=== PATIENT | male | born 1990 | race African-American/Black ===

== ENCOUNTER 2019-09-14 22:55 | Emergency (ER) | payer BC, OTHER ==
[~2019-09-14] VITALS: Ht 170.2 cm; Wt 59.0 kg
--- NOTE | ~2019-09-14 | EMS ---
[place] [address] EMS Patient Care Report Name: DONALD HINDS Room #: PRE M.R.#: [id number] Admission: Attend Phys: Discharge: Date of : [birth year] Report #: [id number] THIS REPORT FOR: //name// Report Transmitted: 09/14/2019 22:13 EMS Care Summary [place], [place]/[facility] Incident [id number] @ 09/14/2019 22:23 Incident [address] [place] [address] Patient DONALD HINDS Male, 29 Years 1990 Patient Address [address] [place] [address] Patient History None Reported, Patient Allergies No known allergies, Patient Medications None Reported, Chief Complaint INTERMITTENT DIZINESS Disposition Transported No Lights/[place] Dispatch Reason Sick Person Transported To [facility] Narrative PT FOUND SITTING ON COUCH. [facility] ALSO RESPONDED BUT STAYED IN [place]. PT STATES HE HAS HAD INTERMITTENT DIZINESS OVER THE LAST SEVERAL DAYS. PT DENIES ANY OTHER COMPLAINTS. PT GIVEN A SURGICAL MASK TO WEAR FOR TRASNPORT. [place] [address] EMS Patient Care Report Name: ODNALD HINDS Room #: PRE ER M.R.#: [id number] Admission: Attend Phys: Discharge: Date of : 88 Report #: [id number] Initial Vitals @22:32P: 76,R: 18,BP: 141/80,Pain: 0/10,GCS: 15,Temp: 98F,Glucose: 119,SpO2: 100,Revised Trauma: 12, Assessments @22:30MENTAL:No Abnormalities,SKIN:No Abnormalities,HEENT:Head/Face: No Abnormalities,Eyes: No Abnormalities,Neck/Airway: No Abnormalities,LUNG SOUNDS:ABDOMEN:PELVIS//GI:EXTREMITIES:PULSE:NEURO:No Abnormalities, Impression Dizziness Procedures @22:30ALS AssessmentResponse: UnchangedSucceeded Timeline 22:21,Call Received 22:21,Dispatch Notified 22:23,Dispatched 22:25,En Route 22:28,On Scene 22:30,At Patient 22:30,ALS Assessment,Response: UnchangedSucceeded, 22:32,BP: 141/80 M,PULSE: 76,RR: 18 R,SPO2: 100 Ox,ETCO2: ,B,PAIN: 0,GCS: 15, 22:42,Depart Scene 22:50,At Destination 23:10,Call Closed Disclaimer v1.1 Copyright 2020 [employer] This EMS Care Summary contains data elements from the applicable legal record (which may be displayed differently). It is designed to provide pertinent information for the following purposes: continuity of care, clinical quality, and state data reporting. The complete legal record is available to ED staff and administrators of the receiving hospital in [employer] Patient Tracker. All data is provided "as is."
[2019-09-14 23:28] LABS: ABSOLUTE NEUTROPHILS 2.7 thou/uL (1.4-8.2); BASOPHILS 0.6 % (0.0-2.0); EOSINOPHILS 3.8 % (0.0-3.0); HEMATOCRIT 37.9 % (42.0-52.0); HEMOGLOBIN 15.6 gm/dL (14.0-18.0); LYMPHOCYTES 44.3 % (24.0-44.0); MCH 28.1 pg (26.0-34.0); MCV 68.5 fL (80.0-100.0); MONOCYTES 8.7 % (1.0-8.0); PLATELET COUNT 205 thou/uL (150-400); POLYS 42.6 % (36.0-66.0); RBC 5.53 mil/uL (4.50-6.00); RDW 14.6 % (10.5-14.5); WBC 6.4 thou/uL (4.0-11.0)
[2019-09-14 23:32] LABS: ANION GAP 6 mmol/L (7-16); BUN 12 mg/dL (7-18); CALCIUM 8.6 mg/dL (8.5-10.1); CHLORIDE 98 mmol/L (98-107); CO2 29 mmol/L (21-32); CREATININE 1.4 mg/dL (0.7-1.3); GLUCOSE 159 mg/dL (74-106); SODIUM 133 mmol/L (136-145)
[2019-09-14 23:40] LABS: TROPONIN-I <0.06 ng/mL (<0.06)
[2019-09-15 01:19] LABS: URINE BILIRUBIN NEGATIVE (Negative); URINE BLOOD NEGATIVE (Negative); URINE CLARITY CLEAR; URINE COLOR YELLOW; URINE GLUCOSE-RANDOM* NEGATIVE (Negative); URINE KETONES NEGATIVE (Negative); URINE LEUKOCYTES-REFLEX NEGATIVE (Negative); URINE NITRITE-REFLEX NEGATIVE (Negative); URINE PROTEIN (DIPSTICK) NEGATIVE (Negative); URINE UROBILINOGEN 0.2 E.U./dl (0.2-1.0)
[2019-09-15] MEDS ORDERED: POTASSIUM20 PO (01:23)
[2019-09-15] MEDS ORDERED: MAGOX 400400 MG PO (01:23)
[2019-09-15 01:36] VITALS: BP 129/77
--- NOTE | 2019-09-15 08:28 | EKG ---
[facility] [place] [address] ELECTROCARDIOGRAM REPORT Name: DONALD HINDS Room #: DEP [facility]#: [id number] Admission: 09/14/19 Attend Phys: Discharge: 09/15/19 Date of : [birth year] Report #: [id number] THIS REPORT FOR: cc: JERROD - Demetria family physician/PCP JERROD - Demetria family physician/PCP Brandyn Villarreal MD [facility] THIS REPORT FOR: //name// [facility] ED Test Date: 2019-09-14 Test Time: 23:28:32 Pat Name: DONALD HINDS Department: Room: Gender: Customer Field Representative: fabricio del angel rn : 1990 Requested By: Roel Real Order Number: [id number] MD: Brandyn Villarreal Measurements Intervals [place] Rate: 78 P: 77 ME: 149 QRS: 64 QRSD: 84 T: 58 QT: 360 QTc: 411 Interpretive Statements Sinus rhythm ST elev, probable normal early repol pattern No previous ECG available for comparison Electronically Signed On 09-15-2019 8:27:13 CDT by Brandyn Villarreal [email or web address] <ELECTRONICALLY SIGNED> By: Brandyn Villarreal MD, [facility] 09/15/19 0827 [id number] 27 Brandyn Villarreal MD, [facility] /EPI
== END 2019-09-15 01:37 | disposition home or self-care (01) ==
LOC: ER 22:55
PROVIDERS: Emergency Medicine
DX: R42 Dizziness and giddiness (principal); R00.2 Palpitations; E87.6 Hypokalemia; E83.42 Hypomagnesemia; J45.909 Unspecified asthma, uncomplicated